=== PATIENT | male | born 1970 | race Caucasian/White ===

== ENCOUNTER 2024-07-08 11:03 | Day surgery (SDC) | payer MEDICARE ==
[2024-07-04 16:09] VITALS: BMI 26.6
[~2024-07-08 11:03] MED LIST: LACTATED RINGERS 1,000 ML IV SCH; LIDOCAINE 1% (10MG/ML) FOR IV START INTRADERMA PRN; ONDANSETRON 4 MG/2 ML VIAL IVP PRN
[2024-07-08 12:12] VITALS: TEMP 97.2
[2024-07-08] MEDS: IV FLUID CONTINUATION 1,000 ML IV ONE (12:13)
[2024-07-08] MEDS ORDERED: PROPOFOL 10 MG/ML 20 ML VIAL IV ONE (12:59)
--- NOTE | 2024-07-08 13:22 | P.PCN ---
Date of Procedure: 07/08/24 Procedure(s) Performed: BRIEF HISTORY: Patient is a 54-year-old pleasant white male scheduled for an elective colonoscopy as a part of screening for colon cancer/positive Cologuard. PROCEDURE PERFORMED: Colonoscopy snare polypectomy and Endo Clip placement PREOPERATIVE DIAGNOSIS: Positive Cologuard/screening for colon cancer. IV sedation per Anesthesia. PROCEDURE: After informed consent was obtained, the patient, was brought into the endoscopy unit. IV sedation was administered by Anesthesia under continuous monitoring. Digital rectal examination was normal. Initially the Olympus CF-160 flexible video colonoscope was then inserted in the rectum, gradually advanced into the cecum without any difficulty. Careful examination was performed as the scope was gradually being withdrawn. Ileocecal valve and the appendiceal orifice were visualized and appeared normal. Prep was excellent. Mucosa of the cecum, 3 cm broad-based polyp that was removed by piecemeal snare polypectomy and complete polypectomy accomplished. Following the polypectomy Endo Clip was placed. In the transverse colon there were 3 polyps measuring 5 mm, 1 cm and 1.2 cm in size all of which were removed by snare polypectomy. In the sigmoid colon there was a 5 mm and 1 cm polyp removed by snare polypectomy. The rectum appeared normal. Retroflexion was performed in the rectum and no lesions were seen. The patient tolerated the procedure well. IMPRESSION: 3 cm broad-based cecal polyp status post piecemeal snare polypectomy followed by Endo Clip placement and complete polypectomy accomplished 1 cm, 1.2 cm and 5 mm transverse colon polyp status post polypectomy 5 mm to 1 cm sigmoid colon polyp status post polypectomy RECOMMENDATIONS: Findings of this examination were discussed with the patient as well as his family. He was advised to follow-up with the biopsy results. He will be seen in the office in 2 weeks. If the biopsy reveals adenoma plan a repeat colonoscopy in 1 year..
[2024-07-08 13:50] VITALS: BP 141/75; PULSE 68; RESP 18
== END 2024-07-08 14:30 | disposition home or self-care (01) ==
LOC: ORWHC2ENDO 11:03
PROVIDERS: ATTEND Internal Medicine Gastroenterology
DX: Z12.11 Encounter for screening for malignant neoplasm of colon (principal); D12.0 Benign neoplasm of cecum; D12.3 Benign neoplasm of transverse colon; D12.5 Benign neoplasm of sigmoid colon; R19.5 Other fecal abnormalities; I10 Essential (primary) hypertension; F32.A Depression, unspecified; Z87.891 Personal history of nicotine dependence; Z86.73 Personal history of transient ischemic attack (TIA), and cerebral infarction without residual deficits; Z79.899 Other long term (current) drug therapy
CPT/HCPCS: 88305; 45385; J2704